=== PATIENT | male | born 1960 | race Caucasian/White ===

== ENCOUNTER 2019-03-04 10:53 | Day surgery (SDC) | payer OTHER ==
[~2019-03-04] VITALS: Ht 182.9 cm; Wt 103.4 kg
[~2019-03-04 10:53] MED LIST: ASPI325T36 PO; ATOR1TAB19 PO; BUPR50TA PO; CLAR10CA3 PO; LISI-538 PO; VITA200021 PO
[2019-03-04] MEDS: NS 1,000 ML IV SCH (11:15)
[2019-03-04] MEDS ORDERED: LIDOCAINE 2% INJ 100 MG/5 ML SDV (FOR ANES.) As Ordered ONE (12:08)
[2019-03-04] MEDS ORDERED: PROPOFOL 200 MG/20 ML VIAL As Ordered ONE (12:08)
--- NOTE | 2019-03-04 12:12 | ROOR ---
Patient Name: Hai Gibson Procedure Date: 03/04/2019 11:54 AM Date of : 1960 Age: 58 Room: [facility], [facility]IN [facility] Gender: Male Note Status: Finalized Procedure: Colonoscopy Indications: Screening in patient at increased risk: Colorectal cancer in brother before age 60 Providers: Aaron Oquendo Jr, MD Referring MD: ASCENCION CRAVEN Requesting Provider: Medicines: Propofol per Anesthesia Complications: No immediate complications. Procedure: Pre-Anesthesia Assessment: - Prior to the procedure, a History and Physical was performed, and patient medications and allergies were reviewed. The patient is competent. The risks and benefits of the procedure and the sedation options and risks were discussed with the patient. All questions were answered and informed consent was obtained. Patient identification and proposed procedure were verified by the physician and the nurse in the pre-procedure area and in the procedure room. Mental Status Examination: alert and oriented. Airway Examination: normal oropharyngeal airway and neck mobility. Respiratory Examination: clear to auscultation. CV Examination: normal. ASA Grade Assessment: II - A patient with mild systemic disease. After reviewing the risks and benefits, the patient was deemed in satisfactory condition to undergo the procedure. The anesthesia plan was to use moderate sedation / analgesia (conscious sedation). Immediately prior to administration of medications, the patient was re-assessed for adequacy to receive sedatives. The heart rate, respiratory rate, oxygen saturations, blood pressure, adequacy of pulmonary ventilation, and response to care were monitored throughout the procedure. The physical status of the patient was re-assessed after the procedure. The Colonoscope was introduced through the anus and advanced to the cecum, identified by appendiceal orifice and ileocecal valve. The colonoscopy was performed without difficulty. The patient tolerated the procedure well. The quality of the bowel preparation was adequate. Findings: The rectum, cecum, appendiceal orifice and ileocecal valve appeared normal. A few small and large-mouthed diverticula were found in the descending colon, transverse colon and ascending colon. Multiple small and large-mouthed diverticula were found in the sigmoid colon. Non-bleeding external and internal hemorrhoids were found during endoscopy. The hemorrhoids were Grade II (internal hemorrhoids that prolapse but reduce spontaneously) and Grade III (internal hemorrhoids that prolapse but require manual reduction). Impression: - The rectum, cecum, appendiceal orifice and ileocecal valve are normal. - Diverticulosis in the descending colon, in the transverse colon and in the ascending colon. - Diverticulosis in the sigmoid colon. - Non-bleeding external and internal hemorrhoids. - No specimens collected. Recommendation: - Repeat colonoscopy in 5 years for screening purposes. Aaron Oquendo MD Aaron Oquendo Jr, MD 03/04/2019 12:11:52 PM Electronically signed by Aaron Oquendo Jr, MD Number of Addenda: 0 Note Initiated On: 03/04/2019 11:54 AM Estimated Blood Loss: Estimated blood loss: none.
[2019-03-04 12:30] VITALS: BP 125/85
== END 2019-03-04 12:40 | disposition home or self-care (01) ==
LOC: M OPP 10:53
PROVIDERS: ATTEND Surgery
DX: K57.30 Diverticulosis of large intestine without perforation or abscess without bleeding (principal); K64.2 Third degree hemorrhoids; K64.1 Second degree hemorrhoids; Z12.11 Encounter for screening for malignant neoplasm of colon; Z80.0 Family history of malignant neoplasm of digestive organs

== ENCOUNTER → 2022-08-05 | Outpatient (CLI) | payer BC, OTHER ==
[~2022-08-05] MED LIST changes: +AMLO5CAP53 PO; -ASPI325T36 PO; +ASPI325T49 PO; +BACK500T PO; +BUPR-69 PO; -BUPR50TA PO; +CHRO400T PO; +D3 H2000 PO; +GNP250TA9 PO; -LISI-538 PO; +LISI20TA33 PO; +TADA5TAB PO
== END ==
LOC: M LABSMTC 10:48
PROVIDERS: ATTEND Anesthesiology
DX: Z01.812 Encounter for preprocedural laboratory examination (principal); Z20.822 Contact with and (suspected) exposure to COVID-19

== ENCOUNTER 2022-08-09 11:33 | Day surgery (SDC) | payer BC ==
[~2022-08-09] VITALS: Ht 182.9 cm; Wt 93.4 kg
[2022-08-09] MEDS ORDERED: LR 1,000 ML IV SCH ×2 (12:25→15:35)
[2022-08-09] MEDS ORDERED: ceFAZolin SOD 2 GM in IV 1 EA IV ONE (13:00)
[2022-08-09] MEDS ORDERED: BUPIVACAINE/EPIN 0.25% 30 ML VIAL As Ordered ONE (14:37)
[2022-08-09] MEDS ORDERED: BUPIVACAINE HCL 0.25% 10ML VIAL As Ordered ONE ×2 (14:37→14:38)
[2022-08-09] MEDS ORDERED: BUPIVACAINE LIPOSOME/PF 1.3% 20ML VIAL (13.3MG/ML)(EXPAREL) As Ordered ONE (14:37)
[2022-08-09] MEDS ORDERED: propofoL 200 MG/20 ML VIAL As Ordered ONE (14:38)
[2022-08-09] MEDS ORDERED: fentaNYL 100 MCG/2 ML INJECTION As Ordered ONE (14:39)
[2022-08-09] MEDS ORDERED: MIDAZOLAM INJ 2MG/2ML VIAL (J2250 PER 1MG) As Ordered ONE (14:39)
[2022-08-09] MEDS ORDERED: LIDOCAINE 2% 100MG/5ML SDV (FOR ANES.) As Ordered ONE (14:40)
[2022-08-09] MEDS ORDERED: ONDANSETRON 4MG 2ML VIAL As Ordered ONE (14:41)
[2022-08-09] MEDS ORDERED: ROCURONIUM BROMIDE 50 MG/5 ML VIAL As Ordered ONE (14:59)
[2022-08-09] MEDS ORDERED: ACETAMINOPHEN 1000MG 100ML IV BTL (OFIRMEV) (J0131 PER 10MG) As Ordered ONE (15:15)
[2022-08-09] MEDS ORDERED: SUGAMMADEX SODIUM 500 MG/5 ML VIAL (BRIDION) As Ordered ONE (15:24)
[2022-08-09] MEDS ORDERED: KETOROLAC 60MG 2ML VIAL As Ordered ONE (15:27)
[2022-08-09] MEDS ORDERED: HYDROMORPHONE HCL 0.5 MG/ 0.5 ML SYRINGE (J1170 PER 1) IV PRN (15:35)
[2022-08-09] MEDS ORDERED: ONDANSETRON 4MG 2ML VIAL IV PRN (15:35)
[2022-08-09] MEDS ORDERED: fentaNYL 100 MCG/2 ML INJECTION IV PRN (15:35)
[2022-08-09] MEDS ORDERED: oxyCODONE 5MG TAB PO PRN (15:35)
[2022-08-09] MEDS ORDERED: traMADol 50 MG TAB PO PRN (16:00)
[2022-08-09] MEDS ORDERED: NS 1,000 ML IV SCH (16:00)
[2022-08-09 16:52] VITALS: BP 156/82
== END 2022-08-09 17:03 | disposition home or self-care (01) ==
LOC: M SDC 11:33
PROVIDERS: ATTEND Surgery
DX: K42.9 Umbilical hernia without obstruction or gangrene (principal); I10 Essential (primary) hypertension; J45.20 Mild intermittent asthma, uncomplicated; K57.92 Diverticulitis of intestine, part unspecified, without perforation or abscess without bleeding; F41.9 Anxiety disorder, unspecified; F32.A Depression, unspecified; Z79.82 Long term (current) use of aspirin; Z79.899 Other long term (current) drug therapy
CPT/HCPCS: 49585; 88302; C9290; J0131; J0690; J1885; J2250; J2405; J3010

== ENCOUNTER 2024-11-25 09:37 | Day surgery (SDC) | payer BC ==
[~2024-11-25] VITALS: Ht 182.9 cm; Wt 106.1 kg
[~2024-11-25 09:37] MED LIST changes: +METF500T13 PO; -TADA5TAB PO; +TADA5TAB94 PO; +THERTAB52 PO; +VITA100093 PO
[2024-11-25] MEDS ORDERED: propofoL 200 MG/20 ML VIAL As Ordered ONE (11:55)
[2024-11-25] MEDS ORDERED: LIDOCAINE 2% 100MG/5ML SDV (FOR ANES.) As Ordered ONE (11:55)
[2024-11-25 12:03] VITALS: TEMP 98.3
[2024-11-25 12:43] VITALS: BP 134/89; O2SAT 99
== END 2024-11-25 12:53 | disposition home or self-care (01) ==
LOC: M OPP 09:37
PROVIDERS: ATTEND Surgery
DX: Z12.11 Encounter for screening for malignant neoplasm of colon (principal); K57.30 Diverticulosis of large intestine without perforation or abscess without bleeding; Z80.0 Family history of malignant neoplasm of digestive organs; Z91.048 Other nonmedicinal substance allergy status; Z79.84 Long term (current) use of oral hypoglycemic drugs; Z79.899 Other long term (current) drug therapy